=== PATIENT | female | born 1995 | race American Indian/Alaskan Native ===

== ENCOUNTER 2017-08-08 01:37 | Emergency (ER) | payer MEDICAID ==
[2017-08-08 02:14] LABS: Basophils % (Auto) 0.6 % (0.0-1.8); Eosinophils % (Auto) 0.9 % (0.0-4.3); Hematocrit 38.2 % (30.3-42.9); Hemoglobin 13.3 gm/dl (10.1-14.3); Mean Corpuscular HGB Conc 35 % (30-34); Mean Corpuscular Hemoglobin 31 pg (28-32); Mean Corpuscular Volume 89 fl (79-97); Platelet Count 163 K/mm3 (140-440); Red Blood Count 4.29 M/mm3 (3.65-5.03); Red Cell Distribution Width 12.8 % (13.2-15.2); White Blood Count 14.4 K/mm3 (4.5-11.0)
[2017-08-08 02:37] LABS: Alanine Aminotransferase 6 units/L (7-56); Albumin 4.2 g/dL (3.9-5); Albumin/Globulin Ratio 1.3 %; Alkaline Phosphatase 68 units/L (35-129); Anion Gap 20 mmol/L; BUN/Creatinine Ratio 12; Blood Urea Nitrogen 6 mg/dL (7-17); Calcium 9.1 mg/dL (8.4-10.2); Carbon Dioxide 23 mmol/L (22-30); Glucose 91 mg/dL (65-100); Lipase 13 units/L (13-60); Potassium 3.7 mmol/L (3.6-5.0); Sodium 139 mmol/L (137-145); Total Protein 7.4 g/dL (6.3-8.2)
[2017-08-08] MEDS ORDERED: NACL 0.9% 1000 ML 2,000 ML IV ONE (03:44)
[2017-08-08] MEDS ORDERED: NORCO 7.5/325 PO ONE (04:09)
[2017-08-08 04:19] LABS: Trichomonas,Urine Present /HPF
[2017-08-08 04:46] LABS: Bilirubin,Urine Negative (Negative); Blood,Urine Negative (Negative); Ketones,Urine Negative (Negative); Leukocyte Esterase,Urine Large (Negative); Nitrite,Urine Negative (Negative)
--- NOTE | 2017-08-08 06:03 | Emergency Department Report ---
HPI - General Chief Complaint: Abdominal Pain Time Seen by Provider: 08/08/17 04:07 - HPI HPI: The patient's 22-year-old female presents for evaluation of right-sided flaky abdominal pain. The patient reports right flank and abdominal pain since 8 PM last night, greater than 6 hours prior to my evaluation. She states that her pain is constant since onset, currently 5/10 in severity, sharp in quality, exacerbated with movement of the right upper body. The patient denies fever, trauma to the chest, abdomen, back, dyspnea, syncope, hemoptysis, dysuria, hematuria, unilateral leg swelling, oral contraceptive use, recent immobilization, history of DVT or PE, recent cancer, history of familial coagulation disorder. ED Past Medical Hx - Past Medical History Previous Medical History?: Yes Hx Asthma: Yes - Surgical History Past Surgical History?: No Additional Surgical History: Tonsillectomy - Social History Smoking Status: Never Smoker Substance Use Type: None - Medications Home Medications: Home Medications Medication Instructions Recorded Confirmed Last Taken Type Ciprofloxacin HCl [Cipro] 500 mg PO Q12H #14 tab 05/22/14 Unknown Rx Fluconazole [Diflucan] 150 mg PO ONCE #1 tablet 05/22/14 Unknown Rx HYDROcodone/APAP 5-325 [[place] 1 each PO Q6HR PRN #12 tablet 05/22/14 Unknown Rx 5/325] Acetaminophen/Codeine 1 tab PO Q6H PRN #12 tab 07/30/14 Unknown Rx [Acetaminophen-Codeine #3 TAB] Fluticasone [Flonase] 1 spray NS QDAY #1 bottle 07/30/14 Unknown Rx Ibuprofen [Motrin 400 MG tab] 400 mg PO Q8H PRN #30 tablet 07/30/14 Unknown Rx Penicillin Vk [Veetids TAB] 500 mg PO BID #20 tablet 07/30/14 Unknown Rx Prednisone [Prednisone 5 mg (6-Day 5 mg PO .TAPER #1 tab.ds.pk 07/30/14 Unknown Rx Pack, 21 Tabs)] Ciprofloxacin HCl [Cipro] 500 mg PO Q12H #14 tab 10/23/14 Unknown Rx Ondansetron [Zofran Odt] 4 mg PO Q6H #20 tab.rapdis 10/23/14 Unknown Rx metroNIDAZOLE [Flagyl] 500 mg PO TID #21 tablet 10/23/14 Unknown Rx traMADol [Ultram] 50 mg PO Q6HR PRN #20 tablet 10/23/14 Unknown Rx Ciprofloxacin HCl [Cipro] 500 mg PO Q12H #14 tab 12/24/14 Unknown Rx Dicyclomine [Bentyl] 20 mg PO QID #20 tablet 07/26/15 Unknown Rx Promethazine [Phenergan TAB] 25 mg PO Q6HR PRN #10 tab 07/26/15 Unknown Rx Famotidine [Pepcid] 20 mg PO BID #20 tablet 06/06/16 Unknown Rx Sulfamethoxazole/Trimethoprim 1 each PO BID #20 tablet 06/06/16 Unknown Rx [Bactrim DS TAB] diphenhydrAMINE [Benadryl CAP] 25 mg PO Q6HR PRN #20 capsule 06/06/16 Unknown Rx methylPREDNISolone [Medrol] 4 mg PO DAILY #1 tab.ds.pk 06/06/16 Unknown Rx metroNIDAZOLE [Flagyl] 500 mg PO Q12HR #14 tab 08/08/17 Unknown Rx traMADol [Ultram 50 MG tab] 50 mg PO Q6HR PRN #15 tablet 08/08/17 Unknown Rx ED Review of Systems ROS: Stated complaint: ABD PAIN Other details as noted in HPI Constitutional: denies: fever ENT: denies: throat or neck pain Respiratory: denies: cough, shortness of breath Cardiovascular: denies: chest pain Endocrine: denies unexplained weight loss or gain Gastrointestinal: reports abdominal pain, nausea Genitourinary: denies: dysuria Musculoskeletal: denies: leg swelling Skin: denies: rash Neurological: denies: headache Hematological/Lymphatic: denies: easy bleeding or easy bruising Psych: denies sadness or hopelessness Physical Exam - Physical Exam Vital Signs: Vital Signs 08/08/17 08/08/17 08/08/17 01:46 04:40 04:46 Temperature 98.9 F Pulse Rate 103 H 81 Respiratory 20 17 Rate Blood Pressure 124/64 99/60 O2 Sat by Pulse 100 96 81 L Oximetry Physical Exam: General: well-nourished, well-developed, no acute distress Head: Normocephalic, atraumatic Eyes: normal sclera ENT: Mucous membranes are pale and dry Neck: trachea midline, neck supple, No neck stiffness, no cervical adenopathy Respiratory: Breath sounds equal bilaterally, no wheezing, rales, or rhonchi Cardio: S1 and S2 present, no murmurs, rubs, gallops, capillary refill is delayed Abdomen: Normoactive bowel sounds, soft abdomen, no rigidity, no guarding or rebound tenderness Chest WALL/Back: right anterior lower intercostal tenderness to palpation present, no bony crepitus or obvious deformity, right CVA tenderness with superficial palpation present Musc: No pitting edema Skin: No rash Neuro: no facial drooping, normal speech Psych: Normal affect ED Course Vital Signs 08/08/17 08/08/17 08/08/17 01:46 04:40 04:46 Temperature 98.9 F Pulse Rate 103 H 81 Respiratory 20 17 Rate Blood Pressure 124/64 99/60 O2 Sat by Pulse 100 96 81 L Oximetry ED Medical Decision Making - Lab Data Result diagrams: 08/08/17 02:00 08/08/17 02:00 - Medical Decision Making The patient was seen and examined by myself. The patient is placed on a resizer operator and continuous pulse ox. On initial evaluation, the patient was found to be in no distress. EKG was negative for findings suggestive of acute cardiac infarct. Labs and imaging are obtained. The patient given 2 L and was afebrile was for treatment of her dehydration. She is given a tablet of norco for her pain. Chest x-ray is negative for pneumothorax, focal consolidation, pulmonary vascular congestion, pleural effusion, or other obvious acute cardiopulmonary disease process. Lab results revealed mild leukocytosis, WBC 14 , and urinalysis positive for Trichomonas, and otherwise labs were non- concerning including levels of hemoglobin, hematocrit, electrolytes, renal function, LFTs, lipase, and negative test. The patient is given antibiotics for treatment of Trichomonas and cervicitis. The patient was reevaluated and reported that their symptoms were markedly improved. As the patient has a REINIER risk score less than 2, and a well's score less than 2, the patient is at low risk of ACS or pulmonary emboli etiology of their symptoms. The patient is stable for discharge with outpatient follow-up. The patient is given follow-up and return instructions. The patient expressed understanding and agreed with the plan. The patient is discharged in stable condition. Critical care attestation.: If time is entered above; I have spent that time in minutes in the direct care of this critically ill patient, excluding procedure time. ED Disposition Clinical Impression: Acute right flank pain, Trichomonal vaginitis, Abdominal pain, acute, bilateral lower quadrant Intercostal muscle strain Qualifiers: Encounter type: initial encounter Qualified Code(s): S29.011A - Strain of muscle and tendon of front wall of thorax, initial encounter Disposition: TO HOME OR SELFCARE Is pt being admited?: No Does the pt Need Aspirin: No Condition: Stable Instructions: Muscle Strain (ED), Abdominal Pain (ED), Flank Pain (ED), Trichomoniasis (ED), Safe Sex (ED), Sexually Transmitted Diseases (ED) Prescriptions: metroNIDAZOLE [Flagyl] 500 mg PO Q12HR #14 tab traMADol [Ultram 50 MG tab] 50 mg PO Q6HR PRN #15 tablet PRN Reason: Pain Referrals: PRIMARY CARE, [Primary Care Provider] - 3-5 Days Time of Disposition: 06:00
[2017-08-08 06:05] VITALS: BP 114/58
[2017-08-08] MEDS ORDERED: FLAGYL PO ONE (06:14)
[2017-08-08] MEDS ORDERED: ZITHROMAX PO ONE (06:14)
[2017-08-08] MEDS ORDERED: XYLOCAINE 1% MPF 5 mL INFILTRATI ONE (06:16)
[2017-08-08] MEDS ORDERED: ROCEPHIN IM ONE (06:16)
--- NOTE | 2017-08-08 08:14 | XRay Report ---
CHEST WITH RIGHT RIB DETAIL FOUR VIEWS: 08/08/17 01:37:00 CLINICAL: Right lower rib pain. FINDINGS: No rib fracture or rib lesion.The lungs are normally expanded and clear. No pneumothorax. Normal heart and pulmonary vasculature the lungs are clear. Normal soft tissues. IMPRESSION: Normal with no rib fracture identified.
== END 2017-08-08 07:10 | disposition home or self-care (01) ==
LOC: ED 01:37
DX: S29.011A Strain of muscle and tendon of front wall of thorax, initial encounter (principal); A59.01 Trichomonal vulvovaginitis; R10.30 Lower abdominal pain, unspecified; J45.909 Unspecified asthma, uncomplicated; X58.XXXA Exposure to other specified factors, initial encounter; Y93.89 Activity, other specified; Y92.89 Other specified places as the place of occurrence of the external cause; Y99.8 Other external cause status
CPT/HCPCS: 36415; 71101; 80053; 81001; 83690; 84703; 85025; 93005; 93010; 96360; 96361; 96372; 99285; J0696; J7030

== ENCOUNTER 2019-12-22 18:32 | Emergency (ER) | payer MEDICAID | END 2019-12-22 19:05 | disposition left against medical advice (07) | LOC: ED 18:32 | DX: Z00.8 Encounter for other general examination (principal); Z53.21 Procedure and treatment not carried out due to patient leaving prior to being seen by health care provider ==